=== PATIENT | female | born 1990 | race Caucasian/White ===

== ENCOUNTER 2021-08-23 00:01 | Inpatient (IN) | payer OTHER, SELFPAY ==
[2021-08-23] VITALS (179 sets, daily range): BP systolic 110–152; BP diastolic 56–116; PULSE 62–145; RESP 16; TEMP 36.4–37.2; O2SAT 96–100; BMI 33.7
--- OUTSIDE RECORDS SUMMARY | 2021-08-23 00:14 | XMS_ITS | Encounter Summary ---
:1990 Author Reason for Visit OB visit 37w6d Assessment and Plan 1. Routine care Discussion Note: None recorded.Patient educational handouts: No information available. Plan of Care Reminders Provider Appointments Ob Routine 08/29/2021 Chio Michelle 4:15PM MD [place] ? Ob Routine 09/05/2021 Annmarie Layne, 11:00AM CNM ? Iop Colpo on or around Rodol fo Michael 10/18/2021 MD [place] ? Well on or around Steve S cott Woman-est 01/31/2022 MD [place] Lab None ? ? recorded. Referral None ? ? recorded. Procedures None ? ? recorded. Surgeries None ? ? recorded. Imaging None ? ? recorded. Medications Name Start Date ? ? ? Medications Administered None recorded. Vitals Height Weight BMI Blood Pressure 5 ft 4 in 208 lbs 35.7 kg/m2 (1) 144/100 mm[ Hg] (2) 142/100 mm[H g] Results Lab Results None recorded. Allergies Code Code System Name Reaction Severity Onset NKDA ? ? ? Problems Name Status Onset Date S
--- OUTSIDE RECORDS SUMMARY | 2021-08-23 00:14 | XMS_ITS | Encounter Summary ---
:1990 Author Reason for Visit None recorded. Assessment and Plan 1. Chronic hypertension complica ting AND/OR reason for care during ? non-stress test Discussion Note: None recorded.Patient educational handouts: No information available. Plan of Care Reminders Provider Appointments Ob Routine 08/29/2021 Chio Michelle 4:15PM MD [place] ? Ob Routine 09/05/2021 Annmarie Layne, 11:00AM CNM ? Iop Colpo on or around Rodol fo Michael 10/18/2021 MD [place] ? Well on or around Steve S payam Woman-est 01/31/2022 MD [place] Lab None ? ? recorded. Referral None ? ? recorded. Procedures None ? ? recorded. Surgeries None ? ? recorded. Imaging Non-stress 08/22/2021 [facility] Medications Name Start Date ? ? ? Medications Administered None recorded. Vitals None recorded. Results Lab Results None recorded. Allergies Code Code System Name Reaction Severity Onset NKDA ? ? ? Problems Name Status Onset Date Source ?
--- OUTSIDE RECORDS SUMMARY | 2021-08-23 00:14 | XMS_ITS ---
:1990 Author Care Team Providers Name Role Phone Annmarie Layne Primary Care Provider Unavailable Allergies Code Code System Name Reaction Severity Status Onset NKDA ? Medications Name Status Start Date Stop Date ? ? Loestrin 24 Fe 1 mg-20 mcg (24)/75 mg (4) tablet Completed 06/02/2013 05/27/2014 take 1 tablet by oral route every day Metrogel Vaginal 0.75 % Completed 07/11/2017 07/17/20 18 insert 1 applicatorful by vaginal route for 5 nights at bedtime Minastrin 24 Fe 1 mg-20 mcg (24)/75 mg (4) chewable tablet Compl eted 07/17/2018 07/17/2018 TAKE 1 TABLET DAILY Active ? Not available Problems Name Status Onset Date Source ? Screening for Malignant Neoplasm of Unknown 05/22/2012 History Cervix Adult Health Examination Unknown 06/09/2015 History Specialized Medical Examination Unknown 06/09/[address] Concept Unknown 07/17/[address] Concept Unknown 07/20/2019 History Dysplasia of Cervix Active 02/23/2021 ? Active 03/01/2021 ? Chronic Hypertension in Obstetric Active ? ? Context Suspected Macrosomia Unknown ? ? Procedures Date Name Performed by ? 03/01/2021 US, Obstetric, Nuchal Translucency Lore [facility] [address] [place] [address] ([address])
--- OUTSIDE RECORDS SUMMARY | 2021-08-23 00:14 | XMS_ITS | Encounter Summary ---
:1990 Author Reason for Visit None recorded. Assessment and Plan 1. -induced hypertensio n ? US, obstetric, biophysical profile + non-stress test Discussion Note: None recorded.Patient educational [...] recorded. Surgeries None ? ? recorded. Imaging US, 08/22/2021 [place] [facility], Biophysical Profile + Non-stress Test Medications Name Start Date ? ? ? Medications Administered None recorded. Vitals None recorded. Results Lab Results None recorded. Allergies Code Code System Name Reaction Severity Onset NKDA ? ? ? Problems Name Status Onset Date Source ?
--- OUTSIDE RECORDS SUMMARY | 2021-08-23 00:15 | XMS_ITS | Encounter Summary ---
:1990 Author Reason for Visit None recorded. Assessment and Plan 1. Chronic hypertension complica ting AND/OR reason for care during ? US, obstetric, biophysical profile + non-stress test Discussion Note: None recorded.Patient educational handouts: No information available. Plan of Care Reminders Provider Appointments Ob Routine 08/29/2021 Chio Michelle 4:15PM MD [place] ? Ob Routine 09/05/2021 Annmarie Layne, 11:00AM CNM ? Iop Colpo on or around Rodol fo Michael 10/18/2021 MD [place] ? Well on or around Steve hare Woman-est 01/31/2022 MD [place] Lab None ? ? recorded. Referral None ? ? recorded. Procedures None ? ? recorded. Surgeries None ? ? recorded. Imaging US, 08/01/2021 [place] [facility], Biophysical Profile + Non-stress Test Medications Name Start Date ? ? ? Medications Administered None recorded. Vitals None recorded. Results Lab Results None recorded. Allergies Code Code System Name Reaction Severity Onset NKDA ? ? ? Problems
--- OUTSIDE RECORDS SUMMARY | 2021-08-23 00:15 | XMS_ITS | Encounter Summary ---
:1990 Author Reason for Visit OB visit Assessment and Plan 1. Chronic hypertension in obste tric context 2. Suspected macrosomia Discussion Note: None recorded.Patient educational handouts: No information available. Plan of Care Reminders Provider Appointments Ob Routine 08/29/2021 Chio Michelle 4:15PM MD [place] ? Ob Routine 09/05/2021 Annmarie Layne, 11:00AM CNM ? Iop Colpo on or around Rodrachelle fo Michael 10/18/2021 MD [place] ? Well on or around Steve S payam Woman-est 01/31/2022 MD [place] Lab None ? ? recorded. Referral None ? ? recorded. Procedures None ? ? recorded. Surgeries None ? ? recorded. Imaging None ? ? recorded. Medications Name Start Date ? ? ? Medications Administered None recorded. Vitals Height Weight BMI Blood Pressure 5 ft 4 in 200 lbs 34.3 kg/m2 (1) 136/90 mm[H g] (2) 130/80 mm[Hg ] Results Lab Results None recorded. Allergies Code Code System Name Reaction Severity Onset NKDA ? ? ? Problems
--- OUTSIDE RECORDS SUMMARY | 2021-08-23 00:15 | XMS_ITS | Encounter Summary ---
:1990 Author Reason for Visit None recorded. Assessment and Plan 1. Chronic hypertension in obste tric context ? US, obstetric, biophysical profile + non-stress [...] Surgeries None ? ? recorded. Imaging US, 07/25/2021 [facility], Biophysical Profile + Non-stress Test Medications Name Start Date ? ? ? Medications Administered None recorded. Vitals None recorded. Results Lab Results None recorded. Allergies Code Code System Name Reaction Severity Onset NKDA ? ? ? Problems Name Status Onset Date Source ?
--- OUTSIDE RECORDS SUMMARY | 2021-08-23 00:15 | XMS_ITS | Encounter Summary ---
[...] Surgeries None ? ? recorded. Imaging Non-stress 07/18/2021 [facility] Medications Name Start Date ? ? ? Medications Administered None recorded. Vitals None recorded. Results Lab Results None recorded. Allergies Code Code System Name Reaction Severity Onset NKDA ? ? ? Problems Name Status Onset Date Source ?
--- OUTSIDE RECORDS SUMMARY | 2021-08-23 00:15 | XMS_ITS | Encounter Summary ---
:1990 Author Reason for Visit None recorded. Assessment and Plan 1. Chronic hypertension complica ting AND/OR reason for care during ? US, obstetric, follow-up ? US, obstetric, biophysical profile + non-stress test Discussion Note: None recorded.Patient educational handouts: No information available. Plan of Care Reminders Provider Appointments Ob Routine 08/29/2021 Chio Michelle 4:15PM MD [place] ? Ob Routine 09/05/2021 Annmarie Layne, 11:00AM CNM ? Iop Colpo on or around Rodol fo Michael 10/18/2021 MD [place] ? Well on or around Steve S [facility] Woman-est 01/31/2022 MD [place] Lab None ? ? recorded. Referral None ? ? recorded. Procedures None ? ? recorded. Surgeries None ? ? recorded. Imaging US, 07/12/2021 [place] [facility], Follow-up ? US, 07/12/2021 [place] [facility], Biophysical Profile + Non-stress Test Medications Name Start Date ? ? ? Medications Administered None recorded. Vitals None recorded. Results Lab Results
--- OUTSIDE RECORDS SUMMARY | 2021-08-23 00:15 | XMS_ITS | Encounter Summary ---
:1990 Author Reason for Visit OB visit Assessment and Plan Assessment Note Patient is ___weeks . Discu ssed plan. 1. Routine care Discussion Note: None recorded.Patient [...] BMI Blood Pressure 5 ft 4 in 193 lbs 33.1 kg/m2 120/81 mm[Hg] Results Lab Results None recorded. Allergies Code Code System Name Reaction Severity Onset NKDA ? ? ? Problems Name
--- OUTSIDE RECORDS SUMMARY | 2021-08-23 00:15 | XMS_ITS | Encounter Summary ---
:1990 Author Reason for Visit None recorded. Assessment and Plan 1. Chronic hypertension complica ting AND/OR reason for care during ? US, obstetric, biophysical profile Discussion Note: None recorded.Patient educational handouts: No [...] Surgeries None ? ? recorded. Imaging US, 07/18/2021 [facility] [facility], Biophysical Profile Medications Name Start Date ? ? ? Medications Administered None recorded. Vitals None recorded. Results Lab Results None recorded. Allergies Code Code System Name Reaction Severity Onset NKDA ? ? ? Problems Name Status Onset Date Source ?
--- OUTSIDE RECORDS SUMMARY | 2021-08-23 00:15 | XMS_ITS | Encounter Summary ---
[...] Surgeries None ? ? recorded. Imaging Non-stress 07/25/2021 [facility] Medications Name Start Date ? ? ? Medications Administered None recorded. Vitals None recorded. Results Lab Results None recorded. Allergies Code Code System Name Reaction Severity Onset NKDA ? ? ? Problems Name Status Onset Date Source ?
--- OUTSIDE RECORDS SUMMARY | 2021-08-23 00:15 | XMS_ITS | Encounter Summary ---
[...] Surgeries None ? ? recorded. Imaging US, 08/15/2021 [place] [facility], Biophysical Profile + Non-stress Test Medications Name Start Date ? ? ? Medications Administered None recorded. Vitals None recorded. Results Lab Results None recorded. Allergies Code Code System Name Reaction Severity Onset NKDA ? ? ? Problems
--- OUTSIDE RECORDS SUMMARY | 2021-08-23 00:15 | XMS_ITS | Encounter Summary ---
[...] Surgeries None ? ? recorded. Imaging Non-stress 08/08/2021 [facility] Medications Name Start Date ? ? ? Medications Administered None recorded. Vitals None recorded. Results Lab Results None recorded. Allergies Code Code System Name Reaction Severity Onset NKDA ? ? ? Problems Name Status Onset Date Source ?
--- OUTSIDE RECORDS SUMMARY | 2021-08-23 00:15 | XMS_ITS | Encounter Summary ---
:1990 Author Reason for Visit OB visit Assessment and Plan 1. Suspected macrosomia 2. Chronic hypertension in obste tric context Discussion Note: None recorded.Patient educational handouts: No [...] ft 4 in 200 lbs 34.3 kg/m2 132/86 mm[Hg] Results Lab Results None recorded. Allergies Code Code System Name Reaction Severity Onset NKDA ? ? ? Problems Name Status Onset Date Source ?
--- OUTSIDE RECORDS SUMMARY | 2021-08-23 00:15 | XMS_ITS | Encounter Summary ---
:1990 Author Reason for Visit OB visit 32w6d Assessment and Plan 1. Routine care Discussion [...] BMI Blood Pressure 5 ft 4 in 195 lbs 33.5 kg/m2 124/86 mm[Hg] Results Lab Results None recorded. Allergies Code Code System Name Reaction Severity Onset NKDA ? ? ? Problems Name Status Onset Date Source ?
--- OUTSIDE RECORDS SUMMARY | 2021-08-23 00:15 | XMS_ITS | Encounter Summary ---
:1990 Author Reason for Visit None recorded. Assessment and Plan 1. Chronic hypertension in obste tric context ? non-stress test Discussion Note: None recorded.Patient [...] Surgeries None ? ? recorded. Imaging Non-stress 08/01/2021 [facility] Medications Name Start Date ? ? ? Medications Administered None recorded. Vitals None recorded. Results Lab Results None recorded. Allergies Code Code System Name Reaction Severity Onset NKDA ? ? ? Problems Name Status Onset Date Source ? Dysplasia of Cervix Active 02/23/2021 ? Pre
--- OUTSIDE RECORDS SUMMARY | 2021-08-23 00:15 | XMS_ITS | Encounter Summary ---
[...] Surgeries None ? ? recorded. Imaging Non-stress 08/15/2021 [facility] Medications Name Start Date ? ? ? Medications Administered None recorded. Vitals None recorded. Results Lab Results None recorded. Allergies Code Code System Name Reaction Severity Onset NKDA ? ? ? Problems Name Status Onset Date Source ?
--- OUTSIDE RECORDS SUMMARY | 2021-08-23 00:15 | XMS_ITS | Encounter Summary ---
:1990 Author Reason for Visit OB visit Assessment and Plan 1. Chronic hypertension in obste tric context 2. Routine care Discussion Note: None recorded.Patient educational handouts: No information available. Plan of Care Reminders Provider Appointments Ob Routine 08/29/2021 Chio Michelle 4:15PM MD [place] ? Ob Routine 09/05/2021 Annmarie Layne, 11:00AM CNM ? Iop Colpo on or around Chapis anusha Michael 10/18/2021 MD [place] ? Well on or around Steve S payam Woman-est 01/31/2022 MD [place] Lab None ? ? recorded. Referral None ? ? recorded. Procedures None ? ? recorded. Surgeries None ? ? recorded. Imaging None ? ? recorded. Medications Name Start Date ? ? ? Medications Administered None recorded. Vitals Height Weight BMI Blood Pressure 5 ft 4 in 204 lbs 35 kg/m2 129/89 mm[Hg] Results Lab Results None recorded. Allergies Code Code System Name Reaction Severity Onset NKDA ? ? ? Problems Name Status Onset Date Source ?
--- OUTSIDE RECORDS SUMMARY | 2021-08-23 00:15 | XMS_ITS | Encounter Summary ---
[...] ? Well on or around Steve S [facility] Woman-est 01/31/2022 MD [place] Lab None ? ? recorded. Referral None ? ? recorded. Procedures None ? ? recorded. Surgeries None ? ? recorded. Imaging US, 08/08/2021 [place] [facility], Follow-up ? US, 08/08/2021 [place] [facility], Biophysical Profile + Non-stress Test Medications Name Start Date ? ? ? Medications Administered None recorded. Vitals None recorded. Results Lab Results
--- OUTSIDE RECORDS SUMMARY | 2021-08-23 00:15 | XMS_ITS | Encounter Summary ---
:1990 Author Reason for Visit OB visit 36w6d Assessment and Plan 1. Routine care 2. -induced hypertensio n Urine sent for pcr ? CBC w/ auto diff ? CMP, serum or plasma ? uric acid, serum or plasma Discussion Note: None recorded.Patient educational handouts: No information available. Plan of Care Reminders Provider Appointments Ob Routine 08/29/2021 Chio Michelle 4:15PM MD [place] ? Ob Routine 09/05/2021 Annmarie Layne, 11:00AM CNM ? Iop Colpo on or around Chap[place] fo Michael 10/18/2021 MD [place] ? Well on or around Steve hare Woman-est 01/31/2022 MD [place] Lab CBC W/ 08/15/2021 [facility] (Lab) ? CMP, Serum 08/15/2021 [facility] ([facility]) ? Uric Acid, 08/15/2021 [facility] ([facility]) Referral None ? ? recorded. Procedures None ? ? recorded. Surgeries None ? ? recorded. Imaging None ? ? recorded. Medications Name Start Daljit
--- OUTSIDE RECORDS SUMMARY | 2021-08-23 00:16 | XMS_ITS | Encounter Summary ---
[...] BMI Blood Pressure 5 ft 4 in 183 lbs 31.4 kg/m2 138/82 mm[Hg] Results Lab Results None recorded. Allergies Code Code System Name Reaction Severity Onset NKDA ? ? ? Problems Name
--- OUTSIDE RECORDS SUMMARY | 2021-08-23 00:16 | XMS_ITS | Encounter Summary ---
[...] BMI Blood Pressure 5 ft 4 in 188 lbs 32.3 kg/m2 127/81 mm[Hg] Results Lab Results None recorded. Allergies Code Code System Name Reaction Severity Onset NKDA ? ? ? Problems Name
--- OUTSIDE RECORDS SUMMARY | 2021-08-23 00:16 | XMS_ITS | Encounter Summary ---
[...] Surgeries None ? ? recorded. Imaging Non-stress 07/12/2021 [facility] Medications Name Start Date ? ? ? Medications Administered None recorded. Vitals None recorded. Results Lab Results None recorded. Allergies Code Code System Name Reaction Severity Onset NKDA ? ? ? Problems Name Status Onset Date Source ?
--- OUTSIDE RECORDS SUMMARY | 2021-08-23 00:16 | XMS_ITS | Encounter Summary ---
:1990 Author Reason for Visit None recorded. Assessment and Plan 1. Chronic hypertension complica ting AND/OR reason for care during ? US, obstetric, follow-up Discussion Note: None recorded.Patient educational handouts: No [...] Surgeries None ? ? recorded. Imaging US, 06/15/2021 [place] [facility], Follow-up Medications Name Start Date ? ? ? Medications Administered None recorded. Vitals None recorded. Results Lab Results None recorded. Allergies Code Code System Name Reaction Severity Onset NKDA ? ? ? Problems Name Status Onset Date Source ?
[2021-08-23 01:44] LABS: Basophils Absolute Auto 0.1 K/mm3 (0.0-0.1); Basophils Percent Auto 0.6 % (0.2-1.2); Eosinophils Absolute Auto 0.5 K/mm3 (0-0.3); Eosinophils Percent Auto 3.6 % (0-4.4); Hematocrit 30.9 % (37.0-47.0); Hemoglobin 10.5 g/dL (12.0-15.0); Immature Granulocyte Absolute 0.17 K/mm3 (0.00-0.031); Immature Granulocyte Percent A 1.2 % (0-0.5); Lymphocytes Absolute Auto 2.29 K/mm3 (0.9-3.2); Lymphocytes Percent Auto 15.7 % (18.3-44.2); Mean Corpuscular Hemoglobin 31.2 pg (26-34); Mean Corpuscular Volume 91.7 fl (80-100); Mean Platelet Volume 11.2 fl (7.4-10.4); Monocytes Absolute Auto 1.2 K/mm3 (0.1-0.6); Neutrophils Absolute Auto 10.3 K/mm3 (1.3-6.7); Neutrophils Percent Auto 70.9 % (45.5-73.1); Platelet Count Result 227 k/mm3 (150-375); Red Blood Count 3.37 M/mm3 (4.2-5.4); Red Cell Distribution Width 13.2 % (11.5-14.5); White Blood Count 14.6 K/mm3 (4.5-10.0)
[2021-08-23] MEDS: OXYTOCIN 30 UNITS/NS 500 ML 30 UNITS/500 ML BAG 6 UNITS IV CONT (01:53)
[2021-08-23] MEDS: LACTATED RINGERS 1,000 ML 125 ML IV CONT ×3 (01:53→07:17)
[2021-08-23 01:55] LABS: Alanine Aminotransferase 24 U/L (4-35); Albumin Level 3.4 g/dL (3.5-5.1); Alkaline Phosphatase 187 U/L (38-126); Anion Gap 8 mmol/L (8-16); Aspartate Amino Transferase 33 U/L (14-36); Bilirubin,Total 0.2 mg/dL (0.2-1.3); Blood Urea Nitrogen 13 mg/dL (7-17); Calcium 9.1 mg/dL (8.4-10.2); Carbon Dioxide 22 mmol/L (22-30); Chloride 106 mmol/L (98-107); Estimated Glomerular Filt Rate > 60; Glucose 95 mg/dL (65-110); Potassium 3.7 mmol/L (3.4-5.0); Sodium 136 mmol/L (137-145); Uric Acid 4.5 mg/dL (2.5-7.5)
--- NOTE | 2021-08-23 02:20 | LDADM ---
This patient, Angela Fontenot, was admitted to Labor/Delivery/Recovery 108 on 08/23/21 at 00:01. Plans for labor, pain management and were discussed with patient. Patient/family oriented to hospital policies and general routines including ID bracelet, bed and alarms, visiting hours, pain management, procedures, bathroom and other care routines, personal items, smoking policy, room service/diet and guest tray routines, security routines, and visiting hours. Patient/Family are encouraged to report perceived risks to care and to ask questions if they do not understand what they are told or what they should do. See OBIX for further documentation.
--- NOTE | 2021-08-23 05:02 | PM.IMHP ---
H&P: HPI History of Present Illness Date/Time: 08/23/21 05:02 Chief Complaint: induction of labor Narrative: Juan is a 30yo G1 at 38.0 here for IOL due to cHTN. otherwise uncomplicated. BPs were great until the last two weeks. Denies TENORIO/BV/EP. Review of Systems Review of Systems: All systems reviewed & are unremarkable except as noted in HPI and below PENDING SALE TO [facility] Family History Family History (Updated 08/09/21 @ 15:42 by Didi Anand RN) Other No pertinent family history Social History Social History Smoking status: Never smoker Substance use: never Spiritual care concerns: No Meds Home Medications and Allergies Home Medications Medication Instructions Recorded Confirmed Type vit-ferrous sulfat-FA 1 tablet PO DAILY 08/23/21 08/23/21 History [] Allergies Allergy/AdvReac Type Severity Reaction Status Date / Time No Known Allergies Allergy Verified 08/09/21 15:39 Vital Signs Vital Signs - 24 hr 08/23/21 01:38 08/23/21 02:00 08/23/21 02:15 Temperature Pulse Rate 83 76 75 Blood Pressure 144/87 H 136/83 128/81 08/23/21 02:30 08/23/21 02:45 08/23/21 03:00 Temperature 97.5 F L Pulse Rate 72 78 71 Blood Pressure 116/66 124/73 111/60 08/23/21 03:15 08/23/21 03:30 08/23/21 04:00 Temperature Pulse Rate 77 70 64 Blood Pressure 114/60 110/61 115/56 L 08/23/21 04:15 08/23/21 04:30 08/23/21 04:55 Temperature 98.8 F Pulse Rate 68 66 Blood Pressure 128/80 116/77 08/23/21 05:00 Temperature Pulse Rate 71 Blood Pressure 139/87 Exam Const: General: no acute distress Resp: Effort & Inspection: normal respiratory effort Auscultation: clear to auscultation bilaterally Cardio: Rate: regular rate Rhythm: regular rhythm GI: GI Palp: Yes Soft to palpation Extrem: General: normal to inspection H&P: Results Labs Labs: Short CBC 08/23/21 Range/Units 01:32 WBC 14.6 H (4.5-10.0) K/mm3 Hgb 10.5 L (12.0-15.0) g/dL Hct 30.9 L (37.0-47.0) % Plt Count 227 (150-375) k/mm3 BMP 08/23/21 01:32 Sodium 136 L Potassium 3.7 Chloride 106 Carbon Dioxide 22 BUN 13 Creatinine 0.50 L Glucose 95 Calcium 9.1 Liver Function 08/23/21 Range/Units 01:32 Total Bilirubin 0.2 (0.2-1.3) mg/dL AST 33 (14-36) U/L ALT 24 (4-35) U/L Alkaline Phosphatase 187 H (38-126) U/L Albumin 3.4 L (3.5-5.1) g/dL Assessment and Plan Assessment and plan (1) Chronic hypertension affecting : Code(s): O10.919 - Unspecified pre-existing hypertension complicating , unspecified trimester Status: Acute Additional Plan Here for induction of labor-cHTN GBS neg AROM clear SVE 3.5/60/-2 FHT category 1 Normal PIH labs
[2021-08-23 06:58] LABS: Rapid Plasma Reagin Non-Reactive (NonReactive)
--- NOTE | 2021-08-23 07:20 | WPDANESEPPF ---
Anes - Initial Pre Proc Eval Date/Time: 08/23/21 07:20 Surgeon: Chio Cheema MD Pre Op Diagnosis: Induction Patient Data Age: 30 Gender: F Height: 1.68 m Weight: 95 kg Last Vital Signs Temp 37.1 C 08/23/21 04:55 Pulse 83 08/23/21 07:18 BP 137/82 08/23/21 07:18 Pulse Ox 100 08/23/21 07:19 Allergies Allergy/AdvReac Type Severity Reaction Status Date / Time No Known Allergies Allergy Verified 08/09/21 15:39 Home Medications Medication Instructions Recorded Confirmed Type vit-ferrous sulfat-FA 1 tablet PO DAILY 08/23/21 08/23/21 History [] Laboratory Tests 08/23/21 08/23/21 08/23/21 01:32 01:32 01:32 WBC 14.6 K/mm3 H K/mm3 (4.5-10.0) RBC 3.37 M/mm3 L M/mm3 (4.2-5.4) Hgb 10.5 g/dL L g/dL (12.0-15.0) Hct 30.9 % L % (37.0-47.0) MCV 91.7 fl fl (80-100) MCH 31.2 pg pg (26-34) MCHC 34.0 g/dl g/dl (32-36) RDW 13.2 % % (11.5-14.5) Plt Count 227 k/mm3 k/mm3 (150-375) MPV 11.2 fl H fl (7.4-10.4) Immature Gran % (Auto) 1.2 % H % (0-0.5) Neut % (Auto) 70.9 % % (45.5-73.1) Lymph % (Auto) 15.7 % L % (18.3-44.2) Hyde % (Auto) 8.0 % % (2.6-8.5) Eos % (Auto) 3.6 % % (0-4.4) Baso % (Auto) 0.6 % % (0.2-1.2) Lymph # (Auto) 2.29 K/mm3 K/mm3 (0.9-3.2) Hyde # (Auto) 1.2 K/mm3 H K/mm3 (0.1-0.6) Eos # (Auto) 0.5 K/mm3 H K/mm3 (0-0.3) Baso # (Auto) 0.1 K/mm3 K/mm3 (0.0-0.1) Abs Immat Gran (auto) 0.17 K/mm3 H K/mm3 (0.00-0.031) Absolute Neuts (auto) 10.3 K/mm3 H K/mm3 (1.3-6.7) Absolute Nucleated RBC 0.0 K/mm3 K/mm3 (0.0-0.012) Nucleated RBC % 0.0 % % (0.0-0.2) Sodium Potassium Chloride Carbon Dioxide Anion Gap BUN Creatinine Estim Creat Clear Calc Estimated GFR Glucose Uric Acid Calcium Total Bilirubin AST ALT Alkaline Phosphatase Total Protein Albumin RPR Non-reactive (NonReactive) Blood Type A Positive Antibody Screen Negative 08/23/21 01:32 WBC RBC Hgb Hct MCV MCH MCHC RDW Plt Count MPV Immature Gran % (Auto) Neut % (Auto) Lymph % (Auto) Hyde % (Auto) Eos % (Auto) Baso % (Auto) Lymph # (Auto) Hyde # (Auto) Eos # (Auto) Baso # (Auto) Abs Immat Gran (auto) Absolute Neuts (auto) Absolute Nucleated RBC Nucleated RBC % Sodium 136 mmol/L L mmol/L (137-145) Potassium 3.7 mmol/L mmol/L (3.4-5.0) Chloride 106 mmol/L mmol/L (98-107) Carbon Dioxide 22 mmol/L mmol/L (22-30) Anion Gap 8 mmol/L mmol/L (8-16) BUN 13 mg/dL mg/dL (7-17) Creatinine 0.50 mg/dL L mg/dL (0.7-1.0) Estim Creat Clear Calc Not Reportable Estimated GFR > 60 (59 - ) Glucose 95 mg/dL mg/dL (65-110) Uric Acid 4.5 mg/dL mg/dL (2.5-7.5) Calcium 9.1 mg/dL mg/dL (8.4-10.2) Total Bilirubin 0.2 mg/dL mg/dL (0.2-1.3) AST 33 U/L U/L (14-36) ALT 24 U/L U/L (4-35) Alkaline Phosphatase 187 U/L H U/L (38-126) Total Protein 6.0 g/dL L g/dL (6.3-8.2) Albumin 3.4 g/dL L g/dL (3.5-5.1) RPR Blood Type Antibody Screen Patient hx anesthesia problems: none Family hx anesthesia problems: none Results Review: All pre-operative results and documents have been reviewed as part of the pre-operative evaluation. [facility] Past Medical History Medical History Chronic hypert
[2021-08-23] MEDS: miSOPROStol 200 MCG TABLET 800 MCG (15:00)
--- NOTE | 2021-08-23 15:01 | PM.OBPRVD ---
OB - Delivery Note Procedure Delivery date: 08/23/21 Procedure: events: Induced HTN Intrapartal events: None Induction method: per pitocin protocol Delivery monitor: external FHT and external uterine Route of delivery: Episiotomy description: None Laceration Description: Labial (Bilateral 1st degree labial) Quantitative Blood Loss (ml): 274 Anesthesia type: Epidural Baby Date of : 08/23/21 Time of : 14:31 Weeks of gestation at delivery: 38 Infant gender: Male Weight (pounds): 7 Weight (ounces): 6 presentation: vertex position: Left Occiput Anterior Placenta delivery description: Spontaneous cord vessel description: Nuchal Cord (Delivered through), Around Body x1 and Delayed Cord Clamping Narrative: Mother and baby in stable condition. Cord gasses collected and handed off to staff. During repair pt had 2 moderate gushes. Cytotec 800mcg per rectum. Fundus firm and bleeding contolled.
[2021-08-23] MEDS: OXYTOCIN 30 UNITS/NS 500 ML 30 UNITS/500 ML BAG 125 UNITS IV CONT (15:21)
--- NOTE | 2021-08-23 19:04 | OBPPTRN ---
1717 Patient transferred to post room #292 via W/C. Support person present. Oriented to unit, room, information board, rooming in, admission packet and security measures. Patient verbalizes understanding.
[2021-08-23] MEDS: ACETAMINOPHEN 325 MG TABLET 650 MG PO (20:08)
[2021-08-24] VITALS: BP 106/65; PULSE 93; RESP 16; TEMP 37.2; O2SAT 98
[2021-08-24 05:00] VITALS: BP 115/74; PULSE 82; RESP 16; TEMP 36.9; O2SAT 99
[2021-08-24 05:16] LABS: Hematocrit 24.4 % (37.0-47.0); Hemoglobin 8.1 g/dL (12.0-15.0)
--- NOTE | 2021-08-24 08:13 | PM.OBPNVD ---
OB - PN: Subj Subjective Date/time seen: 08/24/21 08:13 Patient comments: no complaints baby status: doing well Tell feeding status: exclusively breast feeding OB - PN: Obj Data Labs CBC & Chem 7: 08/24/21 05:08 08/23/21 01:32 Labs: Laboratory Results - last 24 hr 08/24/21 05:08 Hgb 8.1 L Hct 24.4 L OB - PN A/P Plan day: 1 Plan: routine care and discharge home Time Spent With Patient Time: Total time spent is greater than 50% in coordination of care (as documented) at patient's floor/unit and/or counseling patient: Review of Systems Review of Systems: All systems reviewed & are unremarkable except as noted in HPI and below Exam Const: General: cooperative, healthy appearing, comfortable and no acute distress
--- NOTE | 2021-08-24 08:15 | P.DS_ITS ---
DS: Admitting Diagnosis Discharge Date 08/24/21 Admitting Diagnosis IOL OB - DS: Summary OB Procedures : None OB Procedures Intrapartum: Spontaneous Vag Delivery OB Procedures: : None Time Spent with Patient Time attestation: Total time spent providing and/or coordinating discharge services: DS: Data Data Completed and Pending Pending studies at discharge: Pending at discharge 08/23/21 15:35 Surgical [PTH] Routine Labs on day of discharge: Labs from last 24 hours 08/24/21 05:08 Hgb 8.1 L Hct 24.4 L Discharge Plan Discharge Attending physician on discharge: Viridiana Mathew Discharging Clinician: Kandace Boss Patient Disposition: Home, Self-Care Activity: pelvic rest Diet: regular Patient Instructions: Antibiotic Form Stand Alone Forms: General Discharge Information Follow-up/Referrals: Annmarie Layne CNM [Certified Nurse Production [employer]] - 4 Weeks Discharge Medications: New polysaccharide iron complex 150 mg iron Capsule 150 mg PO BIDWM Qty: 60 RF: 0 Continued 27 mg iron- 0.8 mg Tablet 1 tablet PO DAILY RF: 0 Date of admission: 08/23/21 00:01 Primary Care Provider: PHYSICIAN,[employer] Admitting Provider: Chio Cheema Attending physician on admission: Chio Cheema Condition: Stable
[2021-08-24 08:35] VITALS: BP 131/84; PULSE 82; RESP 18; TEMP 36.4; O2SAT 99
[2021-08-24] MEDS: IBUPROFEN 600 MG TABLET PO (08:55)
--- NOTE | 2021-08-24 12:26 | WPDANLDPN2 ---
Anes-Prog Note L&D Date/Time: 08/24/21 12:26 Comfortable throughout: labor and delivery Neuraxial method: epidural Epidural/Spinal procedure site: clean & non-tender Neuro status: Neuro function grossly intact. Cardiovascular status: normal Respiratory status: normal Airway patency: baseline Mental status: baseline Post-Op hydration status: normal Vital Signs: Last Vital Signs Temp 36.4 C 08/24/21 08:35 Pulse 82 08/24/21 08:35 Resp 18 08/24/21 08:35 BP 131/84 08/24/21 08:35 Pulse Ox 99 08/24/21 08:35 Pain score (VAS): 10/09 I/O: Intake & Output 08/23/21 08/24/21 08/24/21 23:59 07:59 15:59 Intake Total 1200 500 Output Total 820 2500 900 Balance -820 -1300 -400 Post-procedural complaints: none Patient feedback: Patient satisfied with anesthetic care.
[2021-08-24 13:05] VITALS: BP 114/65; PULSE 84; RESP 16; TEMP 36.8; O2SAT 99
[2021-08-25 15:19] VITALS: BP 136/83; PULSE 73; RESP 20; TEMP 36.8; O2SAT 100
== END 2021-08-24 16:47 | disposition home or self-care (01) | DRG 807 ==
LOC: ANHLDR 00:12 → ANHOB2 17:41
PROVIDERS: Advanced Practice Midwife; Admitting Provider Obstetrics & Gynecology; Visit Provider Obstetrics & Gynecology
DX: O10.92 Unspecified pre-existing hypertension complicating childbirth (principal); Z37.0 Single live birth; O70.0 First degree perineal laceration during delivery; O69.81X0 Labor and delivery complicated by cord around neck, without compression, not applicable or unspecified; Z3A.38 38 weeks gestation of pregnancy
CPT/HCPCS: 36415; 80053; 84550; 85014; 85018; 85025; 86592; 86850; 86900; 86901; 88307; A9270; J2590; J2795; J7120